=== PATIENT | female | born 2000 | race Hispanic/Latino ===

== ENCOUNTER 2022-02-06 07:23 | Emergency (ER) | payer OTHER ==
[~2022-02-06] VITALS: Ht 157.5 cm; Wt 43.5 kg
[2022-02-06 08:17] LABS: APPEARANCE,URINE CLEAR (CLEAR); BILIRUBIN,URINE NEGATIVE (NEGATIVE); COLOR,URINE LIGHT-YELLOW (YELLOW); GLUCOSE, URINE (UA) NEGATIVE (NEGATIVE); KETONES,URINE NEGATIVE (NEGATIVE); LEUKOCYTE ESTERASE ,URINE NEGATIVE Leu/uL (NEGATIVE); NITRATE,URINE NEGATIVE (NEGATIVE); OCCULT BLOOD,URINE NEGATIVE (NEGATIVE); PROTEIN,URINE NEGATIVE (NEGATIVE); UROBILINOGEN,URINE 0.2 mg/dL (0.2-1.0)
[2022-02-06 08:17] LABS: BASOPHILS % (AUTO) 0.6 % (0.0-5.0); EOSINOPHILS % (AUTO) 1.4 % (0.0-8.0); HEMATOCRIT 34.1 % (36-48); LYMPHOCYTES % (AUTO) 24.9 % (21.0-51.0); MEAN CORPUSCULAR HEMOGLOBIN 25.1 pg (27.0-33.0); MEAN CORPUSCULAR HGB CONC 30.8 g/dL (32.0-36.0); MEAN CORPUSCULAR VOLUME 81.4 fL (79-99); MONOCYTES % (AUTO) 9.6 % (3.0-13.0); NEUTROPHILS % (AUTO) 63.3 % (40.0-77.0); PLATELET COUNT (AUTO) 230 K/uL (130-400); RED BLOOD CELL COUNT(AUTO) 4.19 MIL/uL (4.00-5.50); RED CELL DISTRIBUTION WIDTH 14.8 % (11.0-15.5); WHITE BLOOD COUNT (AUTO) 6.3 K/uL (4.8-10.8)
[2022-02-06 08:22] LABS: HCG,QUALITATIVE URINE NEGATIVE (NEGATIVE)
[2022-02-06 08:39] VITALS: BP 113/68
[2022-02-06 09:36] LABS: CREATININE 0.6 mg/dL (0.5-1.5); POTASSIUM 4.3 mmol/L (3.5-5.1)
[2022-02-06 09:41] LABS: TOTAL PROTEIN, SERUM 7.4 g/dL (6.0-8.3)
[2022-02-06] MEDS ORDERED: IBUPROFEN 400 MG TABLET PO ONE (10:00)
[2022-02-06] MEDS ORDERED: LIDOCAINE 5% TOPICAL PATCH TP ONE (10:00)
[2022-02-06] MEDS ORDERED: IBUP-2091 PO (10:30)
== END 2022-02-06 10:50 | disposition home or self-care (01) ==
LOC: EDH 07:23
DX: R07.89 Other chest pain (principal); S29.011A Strain of muscle and tendon of front wall of thorax, initial encounter; X58.XXXA Exposure to other specified factors, initial encounter; Y93.89 Activity, other specified; Y92.89 Other specified places as the place of occurrence of the external cause; Y99.8 Other external cause status
CPT/HCPCS: 36415; 71046; 80053; 81003; 81025; 83690; 85025; 85378

== ENCOUNTER 2025-02-20 18:09 | Emergency (ER) | payer SELFPAY ==
[~2025-02-20] VITALS: Ht 157.5 cm; Wt 59.0 kg
[~2025-02-20 18:09] MED LIST: IBUP-1506 PO
--- NOTE | 2025-02-20 18:25 | ERN ---
ED Note History of Present Illness Stated Complaint: POSSIBLE SEIZURE Chief Complaint: Seizure Time Seen by MD: 18:16 Dictation: PATIENT IS A 24-YEAR-OLD FEMALE THAT WAS BROUGHT IN BY HER BROTHERS WITH COMPLAINTS OF HAVING A SEIZURE WHILE SHE WAS TAKING A BATH EARLIER TODAY. THE FAMILY WAS UNSURE HOW LONG THE SEIZURE LASTED HOWEVER SHE STATES SHE HAS A HISTORY OF EPILEPSY. SHE STATES SHE HAS HAD IT SINCE SHE WAS 11 OR 12 YEARS OLD. SHE HAD SEEN NEUROLOGISTS WHEN SHE WAS YOUNGER AND THE LAST TIME SHE WENT TO [facility] FOR SEIZURE WAS 10 YEARS AGO. SHE STATES THE NEUROLOGISTS IN TOLD HER THAT THERE WAS NO NEED FOR HER TO BE ON CONTROL MEDICATIONS SINCE SHE ONLY HAS A INFREQUENT SEIZURES. PATIENT HAS NO PAIN AT THIS TIME. SHE STATES SHE DOES DRIVE A VEHICLE. I INFORMED HER THAT SHE WOULD NOT BE DRIVING UNTIL CLEARED BY A NEUROLOGIST SHE IS ALSO COMPLAINING OF A SORE THROAT WITH LOW-GRADE FEVER ONSET THIS MORNING. Allergies: Coded Allergies: No Known Allergies (Unverified Allergy, Unknown, 02/06/22) Home Meds Active Scripts Ibuprofen (Motrin/Advil) 400 Mg Tab, 400 MG PO QID PRN for PAIN, #30 TAB 0 Refills Prov:KIRAN GEORGES MD 02/06/22 Past Medical History Past Medical History: Seizure Surgical History: None RN Note Reviewed/Agreed w/PFSH: Yes Review of System Dictation CONSTITUTIONAL: NEGATIVE EXCEPT FOR HPI FEVER HEAD/FACE: NEGATIVE EXCEPT FOR HPI EENT: NEGATIVE EXCEPT FOR HPI SORE THROAT RESPIRATORY: NEGATIVE EXCEPT FOR HPI GASTROINTESTINAL/ABDOMINAL: NEGATIVE EXCEPT FOR HPI GENITOURINARY: NEGATIVE EXCEPT FOR HPI MUSCULOSKELETAL: NEGATIVE EXCEPT FOR HPI INTEGUMENTARY: NEGATIVE EXCEPT FOR HPI NEUROLOGICAL/PSYCH: NEGATIVE EXCEPT FOR HPI SEIZURE HEMATOLOGIC/LYMPHATIC: NEGATIVE EXCEPT FOR HPI ALL SYSTEMS NEGATIVE, EXCEPT NOTED ABOVE. 13 POINT REVIEW OF SYSTEMS ASSESSED AND ALL NEGATIVE EXCEPT FOR ABOVE. Initial Vital Sign VS Vital Signs Date Time Temp Pulse Resp B/P (MAP) Pulse Ox O2 Delivery O2 Flow Rate FiO2 02/20/25 18:13 99.5 112 20 115/64 100 02/20/25 19:57 Room Air* 0 21 Physical Exam Dictation VITAL SIGNS REVIEWED MILD ACUTE DISTRESS, WELL DEVELOPED, NOURISHED. HEAD AND FACE: NON-TRAUMATIC. EYES: PERRL, PINK CONJUNCTIVAS, EYELID NO TRAUMA, ANTERIOR CHAMBER WITH ARCUS SENILIS. EARS: PINNAS INTACT AND NO SIGNS OF TRAUMA OR ERYTHEMA EAR CANALS CLEAR AND NO DISCHARGE TM NO ERYTHEMA NOSE: NO DISCHARGE, NO BLEEDING. OROPHARYNX: MOUTH NORMAL, TONGUE PINK, PHARYNX CLEAR,NO ERYTHEMA, TONSILS 2/4 BILATERALLY AND EXUDATIVE NO ABSCESSES NOTED, MUCOUS MEMBRANE MOIST MIDLINE, VOICE IS NECK: SUPPLE, NON-TENDER, NO THYROMEGALY, NO MASSES, NO JVD, NO BRUITS BREAST:DEFERRED CHEST:NO TENDERNESS, NO CREPITUS, NO PARADOXICAL MOVEMENT, NO RETRACTIONS LUNGS:CLEAR, WELL-VENTILATED, SYMMETRIC, NO RALES, NO WHEEZING, NO RHONCHI, NO STRIDOR, GOOD BREATH SOUNDS BILATERALLY HEART: REGULAR RATE, REGULAR RHYTHM, NO MURMUR, NO GALLOPS VASCULAR: NO PERIPHERAL EDEMA, ABDOMEN: SOFT, POSITIVE BOWEL SOUNDS, NONDISTENDED, NO GUARDING, NONTENDER, NO REBOUND, NO MASSES NO HEPATOMEGALY, NO SPLENOMEGALY, NO PALMA'S SIGN, NO HERNIAS. RECTAL: DEFERRED GENITAL: DEFERRED NEUROLOGICAL: NORMAL SPEECH, MOTOR FUNCTION INTACT, SENSORY FUNCTION INTACT MUSCULOSKELETAL: NECK NONTENDER, FULL RANGE OF MOTION, BACK NONTENDER, FULL RANGE OF MOTION, EXTREMITIES: NONTENDER, FULL RANGE OF MOTION SKIN: COLOR PINK, DRY, NO TURGOR, NO RASH, NO LACERATIONS, NO ABRASIONS, NO CONTUSIONS. LYMPHATIC: DEFERRED Results (Laboratory/Radiology) Laboratory/Radiology Laboratory Tests Test 02/20/25 18:37 02/20/25 19:20 02/20/25 19:43 White Blood Count 19.1 K/uL (4.8-10.8) H Red Blood Count 5.08 MIL/uL (4.00-5.50) Hemoglobin 11.3 g/dL (12.0-16.0) L Hematocrit 37.6 % (36-48) Mean Corpuscular Volume 74.0 fL (79-99) L Mean Corpuscular Hemoglobin 22.2 pg (27.0-33.0) L Mean Corpuscular Hemoglobin Concent 30.1 g/dL (32.0-36.0) L Red Cell Distribution Width 17.5 % (11.0-15.5) H Platelet Count 290 K/uL (130-400) Mean Platelet Volume 11.9 fL (7.5-10.5) H Immature Granulocyte % (Auto) 0.6 % (0-1) Neutrophils (%) (Auto) 88.3 % (40.0-77.0) H Lymphocytes (%) (Auto) 6.2 % (21.0-51.0) L Monocytes (%) (Auto) 4.6 % (3.0-13.0) Eosinophils (%) (Auto) 0.0 % (0.0-8.0) Basophils (%) (Auto) 0.3 % (0.0-5.0) Neutrophils # (Auto) 16.9 K/uL (1.8-7.7) H Lymphocytes # (Auto) 1.2 K/uL (1.0-4.8) Monocytes # (Auto) 0.9 K/uL (0.1-1.0) Eosinophils # (Auto) 0.00 K/uL (0.00-0.70) Basophils # (Auto) 0.05 K/uL (0.00-0.20) Absolute Immature Granulocyte (auto 0.11 K/uL (0-1) Nucleated Red Blood Cells 0.0 % (0.0-0.19) White Cell Morphology Comment See comments Red Blood Cell Morphology See comments Sodium Level 131 mmol/L (136-145) L Potassium Level 3.3 mmol/L (3.5-5.1) L Chloride Level 96 mmol/L (101-111) L Carbon Dioxide Level 23 mmol/L (21-32) Blood Urea Nitrogen 10 mg/dL (7-18) Creatinine 0.7 mg/dL (0.5-1.0) Glomerular Filtration Rate Calc 123 mL/min (>90) Random Glucose 97 mg/dL (70-105) Total Calcium 9.0 mg/dL (8.5-10.1) Lactic Acid Level 1.6 mmol/L (0.8-2.5) Urine Color LIGHT-YELLOW (YELLOW) Urine Appearance CLEAR (CLEAR) Urine pH 7.0 (5.0-8.0) Urine Specific [place] 1.010 (1.001-1.031) Urine Protein NEGATIVE mg/dL (NEGATIVE) Urine Glucose (UA) NEGATIVE mg/dL (NEGATIVE) Urine Ketones 40 mg/dL (NEGATIVE) H Urine Occult Blood NEGATIVE (NEGATIVE) Urine Nitrate NEGATIVE (NEGATIVE) Urine Bilirubin NEGATIVE mg/dL (NEGATIVE) Urine Urobilinogen 0.2 mg/dL (0.2-1.0) Urine Leukocyte Esterase NEGATIVE Axel/uL Urine HCG, Qualitative NEGATIVE (NEGATIVE) Urine Opiates Screen NEGATIVE (NEGATIVE) Urine Barbiturates Screen NEGATIVE (NEGATIVE) Urine Phencyclidine Screen NEGATIVE (NEGATIVE) Urine Amphetamines Screen NEGATIVE (NEGATIVE) Urine Benzodiazepines Screen NEGATIVE (NEGATIVE) Urine Cocaine Screen NEGATIVE (NEGATIVE) Urine Marijuana (THC) Screen NEGATIVE (NEGATIVE) Labs Reviewed?: Yes ED Course ED Course Orders Procedure Category Date Status Time Levetiracetam 500 Mg PHA 02/20/25 Complete Tablet (Keppra 500 18:30 Saline Lock Iv CPOE 02/20/25 Transmitted 18:22 Seizure Precautions CPOE 02/20/25 Transmitted 18:22 Drug Screen Urine LAB 02/20/25 Complete 18:22 Cbc With Differential LAB 02/20/25 Complete 18:22 ,Urine Test LAB 02/20/25 Complete 18:22 Urinalysis Profile LAB 02/20/25 Complete 18:22 Basic Metabolic Panel LAB 02/20/25 Complete 18:22 Potassium Bicarb/Cit PHA 02/20/25 Complete Ac 25meq (K-Lyte Ta 19:30 Blood Cult EMMANUEL 02/20/25 In Process 19:12 Lactic Acid LAB 02/20/25 Complete 19:12 Ondansetron 4mg Inj PHA 02/20/25 Complete (Zofran 4mg Inj) 20:30 Acetaminophen 500mg PHA 02/20/25 Complete Tab (Tylenol 500mg T 20:30 Current Medications Medications (Trade) Dose Ordered Sig/Kavon Route PRN Reason Start Time Stop Time Status Last Admin Dose Admin Acetaminophen (TYLenol 500MG TAB) 1,000 mg ONCE ONCE PO 02/20/25 20:30 02/20/25 20:31 DC 02/20/25 20:17 Levetiracetam (kepPRA 500 MG TABLET) 1,000 mg ONCE ONCE PO 02/20/25 18:30 02/20/25 18:31 DC 02/20/25 19:28 Ondansetron HCl (zoFRAN 4MG INJ) 4 mg ONCE ONCE IVP 02/20/25 20:30 02/20/25 20:31 DC 02/20/25 20:17 Potassium Bicarbonate (K-Lyte Tablet Eff 25 Meq Tablet.eff) 25 meq ONCE ONCE PO 02/20/25 19:30 02/20/25 19:31 DC 02/20/25 19:29 Vital Signs Date Time Temp Pulse Resp B/P (MAP) Pulse Ox O2 Delivery O2 Flow Rate FiO2 02/20/25 20:17 101.5 02/20/25 19:57 98.6 106 18 118/64 98 Room Air* 0 21 02/20/25 18:13 99.5 112 20 115/64 100 2040/PATIENT WAS STRONGLY ADVISED TO NOT DRIVE WITHOUT BEING CLEARED BY NEUROLOGIST. SHE WILL BE GIVEN ROCEPHIN1 G IV FOR ACUTE TONSILLITIS UNSPECIFIED KEPPRA 500 B.I.D. LIST OF LOCAL PRIMARY CARE DOCTORS TO FOLLOW UP. Medical Decision Making MDM MDM: DIFFERENTIAL DIAGNOSIS: POLYDRUG ABUSE/SEIZURE/NONCOMPLIANT/ELECTROLYTE IMBALANCE/DEHYDRATION/TONSILLITIS RATIONALE: TESTS CONSIDERED AND ORDERED SECONDARY TO SHARED DECISION MAKING INCLUDE: LABS PREVIOUS OUTSIDE RECORDS REVIEWED: OLD ER VISITS. RISK OF COMPLICATION AND/OR MORBIDITY OR MORTALITY OF PATIENT MANAGEMENT: NONE MEDICATIONS-PER MEDICATION RECONCILIATION NEED FOR HOSPITALIZATION: PATIENT DOES NOT MEET CRITERIA FOR HOSPITALIZATION. NONE NEED FOR EMERGENCY MAJOR/MINOR SURGERY: NO THERE ARE NO SOCIAL CONCERNS WITH THIS PATIENT. PRESCRIPTION DRUG MANAGEMENT AUGMENTIN/KEPPRA PRESCRIPTIONS WILL INCLUDE SYMPTOMATIC CARE PATIENT'S PRIOR EXTERNAL MEDICAL RECORDS FROM OTHER ER VISITS WERE REVIEWED BY ME INDICATED. PRIOR TESTING AND RESULTS FROM PREVIOUS VISITS WERE REVIEWED. PRIOR TESTS WERE TAKEN INTO ACCOUNT WITH MEDICAL DECISION MAKING AND RESOURCE UTILIZATION, INDEPENDENT HISTORIAN/HISTORIANS WERE USED TO OBTAIN COMPLETE MEDICAL HISTORY. I INDEPENDENTLY INTERPRETED THE TEST THAT WERE PERFORMED, RESULTS WERE REVIEWED BY ME AND CONSIDERED FINDINGS ON RADIOLOGY IF ORDERED. MEDICAL MANAGEMENT AND EXAMINATION INTERPRETATION DISCUSSIONS WERE HAD BY ME WITH OTHER QUALIFIED HEALTHCARE PROFESSIONALS INDICATED FOR THE PATIENT'S CARE. DX & DISP Disposition: Discharge Departure Impression: Primary Impression: Seizure Additional Impressions: Acute tonsillitis, unspecified, Nausea & vomiting, Hypokalemia, Dehydration Condition: Stable Scripts Levetiracetam (Keppra) 500 Mg Tablet 1 TAB PO BID for 30 Days, #60 TAB 0 Refills Prov: DAVID KERRP 02/20/25 Ondansetron (Ondansetron Odt) 4 Mg Tab.rapdis 4 MG PO Q6HPRN PRN for nausea, #16 TAB 0 Refills Prov: DAVID KERR WHEEL PRESS OPERATOR 02/20/25 Amoxicillin/Potassium Clav (Amox Tr-K Clv 875-125 mg Tab) 875 Mg-125 Mg Tablet 1 EACH PO BID for 7 Days, #14 TAB 0 Refills Prov: DAVID KERR 02/20/25 Additional Instructions: FOLLOW-UP WITH PRIMARY CARE PROVIDER IN 1 TO 2 DAYS. TAKE MEDICATIONS DIRECTED HERE IN THE EMERGENCY ROOM. OKAY TO CONTINUE HOME MEDICATIONS UNLESS OTHERWISE DISCUSSED DURING YOUR VISIT IN THE EMERGENCY ROOM TODAY. RETURN TO YOUR NEAREST EMERGENCY ROOM IF SYMPTOMS WORSEN OR IF THERE IS NO IMPROVEMENT. CALL 911 IF YOU NEED IMMEDIATE ASSISTANCE. TAKE TYLENOL OR MOTRIN [id number] NEEDED AND IF NO CONTRAINDICATIONS ARE PRESENT. INCREASE ORAL HYDRATION. A WOUND CULTURE OR URINE CULTURE WAS ORDERED HERE IN THE EMERGENCY ROOM DEPARTMENT PLEASE FOLLOW-UP WITH PRIMARY CARE PROVIDER AND ADVISE THEM TO GET REPEAT PORTS FROM OUR FACILITY. IF YOU HAD ANY FREDY WRAP/SPLINTS THAT WERE APPLIED HERE, PLEASE DO NOT REMOVE THEM UNTIL YOU SEE YOUR PRIMARY CARE OR SPECIALTY. TAKE KEPPRA TWICE A DAY DIRECTED. TAKE AUGMENTIN TWICE A DAY DIRECTED FOR THE NEXT SEVEN DAYS. TYLENOL OR MOTRIN [id number] NEEDED FOR FEVER PAIN. INCREASE YOUR WATER INTAKE. DO NOT OPERATE A MOTORIZED VEHICLE UNTIL CLEARED BY YOUR NEUROLOGIST. Referrals: SELF,REFERRAL (PCP) Time of Disposition: 20:41 I have reviewed the case, and I agree with, Diagnosis and Plan DAVID KERR Feb 20, 2025 18:25
--- NOTE | 2025-02-20 18:34 | NUR ---
PT JUST NOW PLACED IN ED 11. SEIZURE PADS PLACED JUST IN CASE
[2025-02-20 18:48] LABS: IMMATURE GRANULOCYTE ABSOLUTE 0.11 K/uL (0-1); NUCLEATED RED BLOOD CELLS 0.0 % (0.0-0.19); PLATELET COUNT (AUTO) 290 K/uL (130-400); RED BLOOD CELL COUNT(AUTO) 5.08 MIL/uL (4.00-5.50); RED CELL DISTRIBUTION WIDTH 17.5 % (11.0-15.5); WHITE BLOOD COUNT (AUTO) 19.1 K/uL (4.8-10.8)
[2025-02-20 19:03] LABS: CREATININE 0.7 mg/dL (0.5-1.0); GLOMERULAR FILTR. RATE CALC 123.0 mL/min (>90); GLUCOSE,RANDOM 97.0 mg/dL (70-105); SODIUM SERUM 131.0 mmol/L (136-145); UREA NITROGEN, BLOOD 10.0 mg/dL (7-18)
--- NOTE | 2025-02-20 19:11 | NUR ---
REPORT ENDORSED TO PURA AWAN
[2025-02-20 19:58] LABS: APPEARANCE,URINE CLEAR (CLEAR); GLUCOSE, URINE (UA) NEGATIVE (NEGATIVE); LEUKOCYTE ESTERASE ,URINE NEGATIVE Leu/uL (NEGATIVE); NITRATE,URINE NEGATIVE (NEGATIVE); OCCULT BLOOD,URINE NEGATIVE (NEGATIVE)
[2025-02-20 20:01] LABS: ADD UA MICROSCOPIC NO
[2025-02-20 20:02] LABS: HCG,QUALITATIVE URINE NEGATIVE (NEGATIVE)
[2025-02-20 20:05] LABS: AMPHET/METH SCREEN,URINE NEGATIVE (NEGATIVE); BARBITURATE SCREEN, URINE NEGATIVE (NEGATIVE); CANNABINOID SCREEN,URINE NEGATIVE (NEGATIVE); COCAINE SCREEN,URINE NEGATIVE (NEGATIVE)
[2025-02-20] MEDS ORDERED: AMOX1TAB16 PO (20:43)
[2025-02-20] MEDS ORDERED: LEVE-43 PO (20:43)
[2025-02-20] MEDS ORDERED: ONDA-243 PO (20:43)
[2025-02-20 21:27] VITALS: TEMP 100.5
[2025-02-20 21:44] VITALS: BP 121/62; PULSE 92; RESP 18; TEMP 100.5; O2SAT 98
== END 2025-02-20 21:46 | disposition home or self-care (01) ==
LOC: EDH 18:09
DX: R56.9 Unspecified convulsions (principal); J03.90 Acute tonsillitis, unspecified; E86.0 Dehydration; E87.6 Hypokalemia
CPT/HCPCS: 99284; 96374; 96375; 80048; 80305; 85025; 87040 ×2; 83605; 81025; 36415; 81003; J0696; J2405; 96365